=== PATIENT | male | born 1955 | race Caucasian/White ===

== ENCOUNTER 2023-01-23 06:20 | Day surgery (SDC) | payer MEDICARE, BC ==
[~2023-01-23 06:20] MED LIST: Lactated Ringers 1,000 ML IV SCH; Sodium Chloride 0.9% 10 ML Syringe FLUSH PRN
[2023-01-23] MEDS ORDERED: Lidocaine 2% 5 ML SDV IV ONE (06:21)
[2023-01-23] MEDS ORDERED: Propofol 200 MG/20 ML SDV IV ONE (06:21)
== END 2023-01-23 08:58 | disposition home or self-care (01) ==
LOC: FB.SDS 06:20
PROVIDERS: ATTEND Surgery
DX: Z12.11 Encounter for screening for malignant neoplasm of colon (principal); K57.30 Diverticulosis of large intestine without perforation or abscess without bleeding; K40.90 Unilateral inguinal hernia, without obstruction or gangrene, not specified as recurrent; B37.2 Candidiasis of skin and nail; M19.90 Unspecified osteoarthritis, unspecified site; I10 Essential (primary) hypertension; Z79.899 Other long term (current) drug therapy; Z80.0 Family history of malignant neoplasm of digestive organs
CPT/HCPCS: 00812; J2704; J7120